=== PATIENT | male | born 1995 | race Caucasian/White ===

== ENCOUNTER 2016-08-12 12:29 | Inpatient (IN) | payer OTHER ==
[~2016-08-12] VITALS: Ht 170.2 cm; Wt 89.9 kg
[2016-08-12] MEDS ORDERED: ALBU17IN INH (12:52)
[2016-08-12 13:29] LABS: MEAN CORPUSCULAR HGB CONC 35.1 g/dl (32.0-36.5); RED CELL DISTRIBUTION WIDTH 12.3 % (11.5-14.5); WHITE BLOOD COUNT 11.3 K/mm3 (4.0-10.0)
[2016-08-12 14:01] LABS: METHADONE URINE NEGATIVE (NEGATIVE)
[2016-08-12 14:10] LABS: ALBUMIN 4.1 GM/DL (3.2-5.2); ALBUMIN/GLOBULIN RATIO 1.32 (1.00-1.93); ALKALINE PHOSPHATASE 109 U/L (45-117); ALT/SGPT 70 U/L (12-78); ANION GAP 8 MEQ/L (8-16); AST/SGOT 25 U/L (15-37); BILIRUBIN,DIRECT < 0.1 MG/DL (0.0-0.2); BILIRUBIN,TOTAL 0.3 MG/DL (0.2-1.0); BLOOD UREA NITROGEN 11 MG/DL (7-18); CARBON DIOXIDE LEVEL 24 MEQ/L (21-32); CHLORIDE LEVEL 108 MEQ/L (98-107); CREATININE FOR GFR 0.98 MG/DL (0.70-1.30); GLOMERULAR FILTRATION RATE > 60.0 (>60); GLUCOSE, FASTING 103 MG/DL (70-105); POTASSIUM SERUM 4.1 MEQ/L (3.5-5.1); SODIUM LEVEL 140 MEQ/L (136-145); TOTAL PROTEIN 7.2 GM/DL (6.4-8.2)
[2016-08-12] MEDS ORDERED: MOM 30ML SUSPENSION UDC PO PRN (20:15)
[2016-08-12] MEDS ORDERED: traZODone 50 MG TAB PO PRN (20:15)
[2016-08-12] MEDS ORDERED: MAALOX 30 ML SUSP *UDC PO PRN (20:15)
[2016-08-12] MEDS ORDERED: ACETAMINOPHEN TAB 650MG DOSE (2X325MG) PO PRN (20:15)
[2016-08-12] MEDS ORDERED: OLANZapine ORAL DISINTEGRATING TAB 5MG PO PRN (20:15)
[2016-08-12] MEDS: NICOTINE 21MG/24HR 1 EA TRANSDERMAL TD SCH (21:19)
[2016-08-13 06:57] VITALS: BP 131/76
[2016-08-13] MEDS: NICOTINE 21MG/24HR 1 EA TRANSDERMAL TD SCH (08:34)
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
[2016-08-13 12:00] VITALS: BP 129/74
[2016-08-13 18:00] VITALS: BP 126/72
[2016-08-13] MEDS: traZODone 100 MG TAB PO PRN ×2 (20:57→22:37)
[2016-08-13 20:59] VITALS: BP 136/67
[2016-08-13] MEDS: FOLIC ACID 1 MG TAB PO SCH (23:08)
[2016-08-13] MEDS: THIAMINE 100 MG TAB PO SCH (23:08)
[2016-08-14 06:43] VITALS: BP 119/56
--- NOTE | 2016-08-14 07:11 | HPE ---
DATE OF ADMISSION: 08/12/2016 HISTORY OF PRESENT ILLNESS: Please refer to psychiatric history and evaluation for further details on this admission. This examination and history is intended for medical issues, which may need treatment, followup or consultation on this 21-year-old male. PRIMARY CARE PROVIDER: Barry. ALLERGIES: No known drug allergies. 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 ETOH: Prior to being in the [employer] when he was homeless he drank up to one-half a gallon of liquor a day. He has decreased that amount but now states that recently, over the last three weeks he again has begun drinking and he is drinking up to one-half of gallon a liquor a day. Smoke: He dips a can and one-half at maximum every two days. Recreational drug use: None. PAST MEDICAL HISTORY: Asthma. PAST SURGICAL HISTORY: 1. Left knee anterior cruciate ligament (ACL) replacement. 2. Tonsillectomy. HOME MEDICATIONS: - albuterol HFA two puffs by mouth four times a day as needed shortness of breath or wheeze FAMILY HISTORY: Noncontributory. LABORATORY STUDIES: WBC 11.3, hemoglobin 15.7, hematocrit 44.7, platelets 319. Electrolytes were normal. BUN 11, creatinine 0.98, AST 25, ALT 70. REVIEW OF SYSTEMS: Ten systems review was done and was unremarkable other than history of asthma. He is uses albuterol as needed. OBJECTIVE: GENERAL: 21-year-old cooperative man in no acute distress. VITAL SIGNS: Height 67 inches, weight 88.3 kilograms, body maximum index (BMI) 30.5. Blood pressure 136/67, pulse 86, respirations 16. GENERAL: The patient is alert and oriented times three. HEENT: Pupils equal, round, reactive to light. Extraocular muscles intact. Cornea and sclerae clear. Conjunctiva is normal. No facial asymmetry. Pharynx, tongue and gum is pink and moist. Tongue is midline. NECK: Neck is supple without lymphadenopathy. No thyromegaly. No goiter. CHEST: Clear to auscultation without wheeze or retraction. HEART: Heart is regular. ABDOMEN: Benign. Bowel sounds positive. GENITOURINARY ()/Rectal: Not done. EXTREMITIES: Equal strength with full range of motion. No clubbing, cyanosis, and edema. Gait is steady. Peripheral pulses equal and palpable bilaterally. NEUROLOGIC: Cranial nerve II - XII grossly intact. SKIN: Warm and dry. IMPRESSION/PLAN: 1. Psychiatric plan per psychiatry. 2. Alcohol abuse. 3. Monitor for withdrawal. 4. History of asthma, clinically stable. 5. Will start patient on thiamine 100 by mouth daily, folate 1 mg by mouth daily, multivitamin 1 by mouth daily.
[2016-08-14 07:14] LABS: BASO % 0.3 % (0.0-1.0); EOS # 0.2 K/mm3 (0.0-0.50); EOS % 1.9 % (0.0-3.0); LARGE UNSTAINED CELL # 0.2 K/mm3 (0.0-0.4); LARGE UNSTAINED CELL % 1.9 % (0.0-4.0); LYMPH # 2.9 K/mm3 (1.5-6.5); LYMPH % 30.9 % (24.0-44.0); MEAN CORPUSCULAR HGB CONC 34.7 g/dl (32.0-36.5); MEAN CORPUSCULAR VOLUME 92.2 fl (80.0-96.0); MONO # 0.6 K/mm3 (0.0-0.8); NEUTROPHILS # 5.1 K/mm3 (1.8-7.7); NEUTROPHILS % 57.9 % (36.0-66.0); PLATELET COUNT, AUTOMATED 282 k/mm3 (150-450); RED CELL DISTRIBUTION WIDTH 12.5 % (11.5-14.5); WHITE BLOOD COUNT 8.8 K/mm3 (4.0-10.0)
[2016-08-14] MEDS: FOLIC ACID 1 MG TAB PO SCH (10:06)
[2016-08-14] MEDS: NICOTINE 21MG/24HR 1 EA TRANSDERMAL TD SCH (10:06)
[2016-08-14] MEDS: MULTIVITAMINS/MINERALS THERAP 1 TAB PO SCH (10:06)
[2016-08-14] MEDS: THIAMINE 100 MG TAB PO SCH (10:06)
--- NOTE | 2016-08-14 15:56 | IPNPDOC ---
[facility] Progress Note Progress Note DATE OF SERVICE: 08/14/16 HISTORY: Day 3 of admission. VITAL SIGNS: See below. NEW TEST RESULTS: na CURRENT MEDICATIONS: See below. MENTAL STATUS EXAMINATION: Patient is a 21-year old male, who is dressed in hospital garb, good eye contact , good hygiene. Speech: Is clear, fluent Language skills are good. Thought processes including: negative thinking, hopelessness Thought content: suicide plan remains in place as Plan A, Plan B is to complete service and upon discharge move to [place]. Abstract reasoning, and computation: fair, Description of associations: good. Description of abnormal or psychotic thoughts: Pt states he still intends to end his life after discharge. Denies aud or visual disturbance, Denies homicidal thoughts. States he will not do anything on the unit to harm himself or others. Judgment: fair Insight:fair Orientation: oriented in all spheres. Recent and remote memory: intact Attention span and concentration: good Fund of knowledge: full Mood:depressed. Affect: congruent DIAGNOSES: 1. Bipolar II disorder, current episode depressed, severe 2. alcohol abuse 3. nicotine dependence. ASSESSMENT:will add depakote to medication for impulse control, will increase abilify for mood regulation. Pt may have his leg brace for his left leg. MANAGEMENT PLAN: patient will need close surveillance after discharge as he is intent on suicide. TIME SPENT: 30 minutes. Vital Signs Vital Signs Date Time Temp Pulse Resp B/P (MAP) Pulse Ox O2 Delivery O2 Flow Rate FiO2 08/14/16 06:43 99.1 107 18 119/56 (77) 08/12/16 17:59 98 Room Air Laboratory Data 24H Labs Laboratory Tests 2 08/14/16 06:40: White Blood Count 8.8, Red Blood Count 4.47, Hemoglobin 14.3, Hematocrit 41.2L, Mean Corpuscular Volume 92.2, Mean Corpuscular Hemoglobin 32.0, Mean Corpuscular Hemoglobin Concent 34.7, Red Cell Distribution Width 12.5, Platelet Count 282, Neutrophils (%) (Auto) 57.9, Lymphocytes (%) (Auto) 30.9, Monocytes ( %) (Auto) 7.0H, Eosinophils (%) (Auto) 1.9, Basophils (%) (Auto) 0.3, Neutrophils # (Auto) 5.1, Lymphocytes # (Auto) 2.9, Monocytes # (Auto) 0.6, Eosinophils # (Auto) 0.2, Basophils # (Auto) 0.0, Large Unclassified Cells % 1.9 , Large Unclassified Cells # 0.2 CBC/BMP Laboratory Tests 08/14/16 06:40 Red Blood Count 4.47, Mean Corpuscular Volume 92.2, Mean Corpuscular Hemoglobin 32.0, Mean Corpuscular Hemoglobin Concent 34.7, Red Cell Distribution Width 12.5 , Neutrophils (%) (Auto) 57.9, Lymphocytes (%) (Auto) 30.9, Monocytes (%) (Auto ) 7.0 H, Eosinophils (%) (Auto) 1.9, Basophils (%) (Auto) 0.3, Neutrophils # ( Auto) 5.1, Lymphocytes # (Auto) 2.9, Monocytes # (Auto) 0.6, Eosinophils # (Auto ) 0.2, Basophils # (Auto) 0.0 Current Medications Current Medications Acetaminophen (Tylenol Tab) 650 mg Q6HP PRN PO HEADACHE or DISCOMFORT; Start at 20:15; Stop 09/11/16 at 20:14 Al Hydrox/Mg Hydrox/Simethicone (Mylanta) 30 ml Q4HP PRN PO HEARTBURN/ INDIGESTION; Start 08/12/16 at 20:15; Stop 09/11/16 at 20:14 Albuterol Sulfate (Proventil, Ventolin Hfa) 2 puff Q4HP PRN INH SHORTNESS OF BREATH; Start 08/12/16 at 21:30; Stop 09/11/16 at 21:29 Aripiprazole (AbiLIFY) 5 mg DAILY PO Last administered on 08/14/16 10:06; Start 08/13/16 at 09:00; Stop 09/12/16 at 08:59 Folic Acid (Folic Acid) 1 mg DAILY PO Last administered on 08/14/16 10:06; Start 08/13/16 at 09:00; Stop 09/12/16 at 08:59 Home Med (Med Rec Complete!) ASDIRECTED XX ; Start 08/12/16 at 15:00; Stop at 18:18; Status DC Magnesium Hydroxide (Milk Of Magnesia) 30 ml DAILYPRN PRN PO CONSTIPATION; Start 08/12/16 at 20:15; Stop 09/11/16 at 20:14 Multivitamins (Theragram-M) 1 tab DAILY PO Last administered on 08/14/16 10:06 ; Start 08/14/16 at 09:00; Stop 09/13/16 at 08:59 Nicotine (Nicoderm Cq 21mg) 1 patch DAILY TD Last administered on 08/14/16 10: 06; Start 08/12/16 at 09:00; Stop 09/11/16 at 08:59 Olanzapine (ZyPREXA ZYDIS) 5 mg Q4HP PRN PO ANXIETY/AGITATION; Start at 20:15; Stop 09/11/16 at 20:14; Status Cancel Thiamine HCl (Thiamine HCl) 100 mg DAILY PO Last administered on 08/14/16 10:06 ; Start 08/13/16 at 09:00; Stop 09/12/16 at 08:59 Trazodone HCl (Desyrel) 50 mg QHSP PRN PO INSOMNIA Last administered on 22:13; Start 08/12/16 at 20:15; Stop 08/13/16 at 10:40; Status DC Trazodone HCl (Desyrel) 100 mg QHSP PRN PO INSOMNIA Last administered on 22:37; Start 08/13/16 at 10:45; Stop 09/12/16 at 10:44 Allergies Coded Allergies: No Known Allergies (Unverified , 08/12/16) Angela Finnegan August 14, 2016 15:56
[2016-08-14 18:00] VITALS: BP 136/77
[2016-08-14] MEDS: traZODone 100 MG TAB PO PRN ×2 (21:01→22:43)
[2016-08-14] MEDS: DIVALPROEX 250 MG TAB PO SCH (21:01)
[2016-08-14] MEDS: ALBUTEROL 90 MCG/ACT 8GM HFA INHALER INH PRN (22:02)
[2016-08-15 06:31] VITALS: BP 108/54
[2016-08-15] MEDS: NICOTINE 21MG/24HR 1 EA TRANSDERMAL TD SCH (08:16)
[2016-08-15] MEDS: FOLIC ACID 1 MG TAB PO SCH (08:17)
[2016-08-15] MEDS: MULTIVITAMINS/MINERALS THERAP 1 TAB PO SCH (08:17)
[2016-08-15] MEDS: DIVALPROEX 250 MG TAB PO SCH ×2 (08:17→20:57)
[2016-08-15] MEDS: ARIPiprazole 10 MG TAB PO SCH (08:17)
[2016-08-15] MEDS: THIAMINE 100 MG TAB PO SCH (08:17)
[2016-08-15 12:00] VITALS: BP 136/84
[2016-08-15] MEDS: hydrOXYzine 50 MG TAB PO PRN ×2 (15:23→20:58)
--- NOTE | 2016-08-15 15:25 | MHIPNPDOC ---
[facility] Progress Note Progress Note DATE OF SERVICE: 08/15/16 HISTORY: Day 4 of admission VITAL SIGNS: See below. NEW TEST RESULTS: CURRENT MEDICATIONS: See below. MENTAL STATUS EXAMINATION: Patient is a 21-year old male, who is dressed in hospital attire, laying on bed , awake and alert, well oriented. Speech: Is spontaneous Language skills are good Thought processes including: goal directed Thought content: negative thoughts about himself and life. Abstract reasoning, and computation: good Description of associations: good Description of abnormal or psychotic thoughts: still considers suicide an option but less than before, no psychotic symptoms illicited. Judgment: poor Insight: fair Orientation: oriented to person, place, time and situation. Recent and remote memory: intact Attention span and concentration: good/variable Fund of knowledge: full Mood: depressed. Affect: broad range of affect DIAGNOSES: 1. Bipolar II disorder, current episode depressed, severe 2. alcohol abuse 3. nicotine dependence. ASSESSMENT:Pt took increased dose of Abilify for 1st time today. By the afternoon he is reporting racing thoughts. May or may not be related to Abilify , need to monitor this. pt got his leg brace. pt slept very well last night per his self-report. pt is not interested in contacting friends or family stating it will distract him from working on himself. Pt reports [employer] [facility] sending [facility] to [place] for treatment. He is willing to go for ongoing treatment and feels it is a good idea. MANAGEMENT PLAN: If pt continues to report racing thoughts will either lower Abilify on Thursday or change to a new agent entirely. In the meantime, Atarax 50 mg po is available prn q 4 h for anxiety. TIME SPENT: 15 minutes. Vital Signs Vital Signs Date Time Temp Pulse Resp B/P (MAP) Pulse Ox O2 Delivery O2 Flow Rate FiO2 08/15/16 12:00 98.3 90 16 136/84 (101) 08/12/16 17:59 98 Room Air Current Medications Current Medications Acetaminophen (Tylenol Tab) 650 mg Q6HP PRN PO HEADACHE or DISCOMFORT; Start at 20:15; Stop 09/11/16 at 20:14 Al Hydrox/Mg Hydrox/Simethicone (Mylanta) 30 ml Q4HP PRN PO HEARTBURN/ INDIGESTION; Start 08/12/16 at 20:15; Stop 09/11/16 at 20:14 Albuterol Sulfate (Proventil, Ventolin Hfa) 2 puff Q4HP PRN INH SHORTNESS OF BREATH Last administered on 08/14/16 22:02; Start 08/12/16 at 21:30; Stop at 21:29 Aripiprazole (AbiLIFY) 5 mg DAILY PO Last administered on 08/14/16 10:06; Start 08/13/16 at 09:00; Stop 08/14/16 at 15:59; Status DC Aripiprazole (AbiLIFY) 10 mg DAILY PO Last administered on 08/15/16 08:17; Start 08/15/16 at 09:00; Stop 09/14/16 at 08:59 Divalproex Sodium (Depakote) 250 mg BID PO Last administered on 08/15/16 08:17 ; Start 08/14/16 at 21:00; Stop 09/13/16 at 20:59 Folic Acid (Folic Acid) 1 mg DAILY PO Last administered on 08/15/16 08:17; Start 08/13/16 at 09:00; Stop 09/12/16 at 08:59 Home Med (Med Rec Complete!) ASDIRECTED XX ; Start 08/12/16 at 15:00; Stop at 18:18; Status DC Hydroxyzine HCl (Atarax) 50 mg Q4HP PRN PO ANXIETY; Start 08/15/16 at 15:15; Stop 09/14/16 at 15:14; Status UNV Magnesium Hydroxide (Milk Of Magnesia) 30 ml DAILYPRN PRN PO CONSTIPATION; Start 08/12/16 at 20:15; Stop 09/11/16 at 20:14 Multivitamins (Theragram-M) 1 tab DAILY PO Last administered on 08/15/16 08:17 ; Start 08/14/16 at 09:00; Stop 09/13/16 at 08:59 Nicotine (Nicoderm Cq 21mg) 1 patch DAILY TD Last administered on 08/15/16 08: 16; Start 08/12/16 at 09:00; Stop 09/11/16 at 08:59 Olanzapine (ZyPREXA ZYDIS) 5 mg Q4HP PRN PO ANXIETY/AGITATION; Start at 20:15; Stop 09/11/16 at 20:14; Status Cancel Thiamine HCl (Thiamine HCl) 100 mg DAILY PO Last administered on 08/15/16 08:17 ; Start 08/13/16 at 09:00; Stop 09/12/16 at 08:59 Trazodone HCl (Desyrel) 50 mg QHSP PRN PO INSOMNIA Last administered on 22:13; Start 08/12/16 at 20:15; Stop 08/13/16 at 10:40; Status DC Trazodone HCl (Desyrel) 100 mg QHSP PRN PO INSOMNIA Last administered on 22:43; Start 08/13/16 at 10:45; Stop 09/12/16 at 10:44 Allergies Coded Allergies: No Known Allergies (Unverified , 08/12/16) Angela Finnegan August 15, 2016 15:25
[2016-08-15 18:00] VITALS: BP 134/83
[2016-08-15] MEDS: traZODone 100 MG TAB PO PRN (20:57)
[2016-08-16 06:53] VITALS: BP 111/59
[2016-08-16] MEDS: THIAMINE 100 MG TAB PO SCH (08:31)
[2016-08-16] MEDS: ARIPiprazole 10 MG TAB PO SCH (08:31)
[2016-08-16] MEDS: DIVALPROEX 250 MG TAB PO SCH ×2 (08:31→20:24)
[2016-08-16] MEDS: NICOTINE 21MG/24HR 1 EA TRANSDERMAL TD SCH (08:31)
[2016-08-16] MEDS: FOLIC ACID 1 MG TAB PO SCH (08:31)
[2016-08-16] MEDS: MULTIVITAMINS/MINERALS THERAP 1 TAB PO SCH (08:31)
[2016-08-16 11:53] VITALS: BP 111/58
[2016-08-16 18:00] VITALS: BP 127/72
--- NOTE | 2016-08-16 19:18 | IPN ---
DATE: 08/16/2016 CHIEF COMPLAINT: Says feels a bit better. Seen for followup in the presence of staff. Says feels a bit better, in that he is less anxious. Says he feels suicidal but thinks less often of thoughts related to suicide, and attempts to differentiate the two. Denies any plans of harming himself at present. MENTAL STATUS EXAMINATION: Neat, cooperative. No agitation. No psychomotor retardation. Coherent. Affect is restricted but reactive. Has suicidal thoughts. No firm plans. No homicidal ideas or intents. No evidence of psychosis. Cognition grossly intact. Judgment and insight fair. ASSESSMENT: 1. Bipolar, type 2, disorder by history, current episode depressed. PLAN: 1. Continue current care, including the Abilify, Depakote, hydroxyzine. 2. Continue current observations. 3. Encourage participation in activities in the unit.
[2016-08-16] MEDS: hydrOXYzine 50 MG TAB PO PRN (20:24)
[2016-08-16] MEDS: traZODone 100 MG TAB PO PRN ×2 (20:24→23:09)
[2016-08-17 06:13] VITALS: BP 115/70
[2016-08-17] MEDS: NICOTINE 21MG/24HR 1 EA TRANSDERMAL TD SCH (08:23)
[2016-08-17] MEDS: THIAMINE 100 MG TAB PO SCH (08:23)
[2016-08-17] MEDS: FOLIC ACID 1 MG TAB PO SCH (08:23)
[2016-08-17] MEDS: DIVALPROEX 250 MG TAB PO SCH ×2 (08:23→22:45)
[2016-08-17] MEDS: ARIPiprazole 10 MG TAB PO SCH (08:23)
[2016-08-17] MEDS: MULTIVITAMINS/MINERALS THERAP 1 TAB PO SCH (08:23)
[2016-08-17 12:00] VITALS: BP 127/77
[2016-08-17] MEDS: hydrOXYzine 50 MG TAB PO PRN (16:04)
[2016-08-17 18:00] VITALS: BP 128/76
[2016-08-17 22:00] VITALS: BP 124/72
[2016-08-18 06:58] VITALS: BP 125/70
[2016-08-18] MEDS: MULTIVITAMINS/MINERALS THERAP 1 TAB PO SCH (08:33)
[2016-08-18] MEDS: FOLIC ACID 1 MG TAB PO SCH (08:33)
[2016-08-18] MEDS: THIAMINE 100 MG TAB PO SCH (08:33)
[2016-08-18] MEDS: NICOTINE 21MG/24HR 1 EA TRANSDERMAL TD SCH (08:33)
[2016-08-18] MEDS: ARIPiprazole 10 MG TAB PO SCH (08:34)
[2016-08-18] MEDS: DIVALPROEX 250 MG TAB PO SCH ×2 (08:34→21:12)
[2016-08-18] MEDS: hydrOXYzine 25 MG TAB PO PRN ×2 (12:58→21:12)
--- NOTE | 2016-08-18 15:39 | MHIPNPDOC ---
[facility] Progress Note Progress Note DATE OF SERVICE: 08/18/16 HISTORY: Day 7 of admission. Pt here for SI. VITAL SIGNS: See below. NEW TEST RESULTS: na CURRENT MEDICATIONS: See below. MENTAL STATUS EXAMINATION: Patient is a 21-year old male, who is dressed in hospital attire, good hygiene, good eye contact, pleasant and cooperative. Speech: Is spontaneous, clear Language skills are good Thought processes including: linear, goal directed Thought content: option of suicide is still a viable one for him, wants his best friend to visit him before he is transferred to halfway care. Abstract reasoning, and computation: fair. Description of associations: good. Description of abnormal or psychotic thoughts: pt states he is not thinking of suicide as often but the feeling that he would consider suicide an option for him remains real. No psychotic symptoms present Judgment: poor Insight: fair. Orientation: oriented in all spheres Recent and remote memory: intact Attention span and concentration: good Fund of knowledge: fair Mood: depressed. Affect: constricted and anxious. DIAGNOSES: 1. bipolar II, current episode depressed, severe. 2. nicotine dependence 3. alcohol abuse. ASSESSMENT:Pt continues to consider suicide but states his thoughts of suicide are less frequent. He does not offer a plan but feels that there are plenty of ways. He is very matter of fact when speaking of suicide and sees nothing unusual with being 21 and wanting to kill yourself. He had a very troublesome upbringing and has no contact with his family of origin. 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 He is of average to above average in intelligence. He is social with peers and gets along well with others. He has empathy for others. He denies any psychotic symptoms but does endorse symptoms of tomy mostly with decreased need for sleep , not feeling tired when he sleeps very little, increased energy, mood swings, racing thoughts, distracted by thoughts, some impulsive behavior by history. Pt has engaged in self-mutilation by cutting in the past. MANAGEMENT PLAN: Pt was stated on Abilify 5 mg then increased to 10 mg. He reported racing thoughts on Thursday but today he states he does not think his thoughts are racing due to the abilify. He feels that he is anxious about the [employer] decision to send him to [place] for long-term inpatient treatment. This is a good decision on their part and pt is willing to participate. His only request is for his friend from [place] to visit him before he leaves. He was provided with a list of the items that he needs to pack. We discussed adding Wellbutrin to his medication regime to help with depression. May also help his reliance on snuff. He chews a can and a-half every 2 days. He states he is diligent with his oral hygiene. Daquan reports adequate sleep on the unit. He is tolerating meals. Denies constipation. TIME SPENT: 30 minutes. Vital Signs Vital Signs Date Time Temp Pulse Resp B/P (MAP) Pulse Ox O2 Delivery O2 Flow Rate FiO2 08/18/16 06:58 97.1 91 18 125/70 (88) 08/12/16 17:59 98 Room Air Current Medications Current Medications Acetaminophen (Tylenol Tab) 650 mg Q6HP PRN PO HEADACHE or DISCOMFORT; Start at 20:15; Stop 09/11/16 at 20:14 Al Hydrox/Mg Hydrox/Simethicone (Mylanta) 30 ml Q4HP PRN PO HEARTBURN/ INDIGESTION; Start 08/12/16 at 20:15; Stop 09/11/16 at 20:14 Albuterol Sulfate (Proventil, Ventolin Hfa) 2 puff Q4HP PRN INH SHORTNESS OF BREATH Last administered on 08/14/16 22:02; Start 08/12/16 at 21:30; Stop at 21:29 Aripiprazole (AbiLIFY) 5 mg DAILY PO Last administered on 08/14/16 10:06; Start 08/13/16 at 09:00; Stop 08/14/16 at 15:59; Status DC Aripiprazole (AbiLIFY) 10 mg DAILY PO Last administered on 08/18/16 08:34; Start 08/15/16 at 09:00; Stop 09/14/16 at 08:59 Divalproex Sodium (Depakote) 250 mg BID PO Last administered on 08/18/16 08:34 ; Start 08/14/16 at 21:00; Stop 09/13/16 at 20:59 Folic Acid (Folic Acid) 1 mg DAILY PO Last administered on 08/18/16 08:33; Start 08/13/16 at 09:00; Stop 09/12/16 at 08:59 Home Med (Med Rec Complete!) ASDIRECTED XX ; Start 08/12/16 at 15:00; Stop at 18:18; Status DC Hydroxyzine HCl (Atarax) 25 mg Q4HP PRN PO ANXIETY/AGITATION Last administered on 08/18/16 12:58; Start 08/18/16 at 12:15; Stop 09/17/16 at 12:14 Hydroxyzine HCl (Atarax) 50 mg Q4HP PRN PO ANXIETY Last administered on 16:04; Start 08/15/16 at 15:15; Stop 08/18/16 at 12:11; Status DC Magnesium Hydroxide (Milk Of Magnesia) 30 ml DAILYPRN PRN PO CONSTIPATION; Start 08/12/16 at 20:15; Stop 09/11/16 at 20:14 Multivitamins (Theragram-M) 1 tab DAILY PO Last administered on 08/18/16 08:33 ; Start 08/14/16 at 09:00; Stop 09/13/16 at 08:59 Nicotine (Nicoderm Cq 21mg) 1 patch DAILY TD Last administered on 08/18/16 08: 33; Start 08/12/16 at 09:00; Stop 09/11/16 at 08:59 Olanzapine (ZyPREXA ZYDIS) 5 mg Q4HP PRN PO ANXIETY/AGITATION; Start at 20:15; Stop 09/11/16 at 20:14; Status Cancel Thiamine HCl (Thiamine HCl) 100 mg DAILY PO Last administered on 08/18/16 08:33 ; Start 08/13/16 at 09:00; Stop 09/12/16 at 08:59 Trazodone HCl (Desyrel) 50 mg QHSP PRN PO INSOMNIA Last administered on 22:13; Start 08/12/16 at 20:15; Stop 08/13/16 at 10:40; Status DC Trazodone HCl (Desyrel) 100 mg QHSP PRN PO INSOMNIA Last administered on 23:09; Start 08/13/16 at 10:45; Stop 09/12/16 at 10:44 Allergies Coded Allergies: No Known Allergies (Unverified , 08/12/16) Angela Finnegan August 18, 2016 15:39
[2016-08-18] MEDS: buPROPion 75 MG TAB PO SCH (15:55)
[2016-08-18 18:00] VITALS: BP 136/77
[2016-08-18] MEDS: traZODone 100 MG TAB PO PRN (21:11)
[2016-08-18 21:55] VITALS: BP 124/66
[2016-08-19 06:22] VITALS: BP 112/61
[2016-08-19] MEDS: FOLIC ACID 1 MG TAB PO SCH (08:53)
[2016-08-19] MEDS: ARIPiprazole 10 MG TAB PO SCH (08:53)
[2016-08-19] MEDS: buPROPion 75 MG TAB PO SCH (08:53)
[2016-08-19] MEDS: MULTIVITAMINS/MINERALS THERAP 1 TAB PO SCH (08:53)
[2016-08-19] MEDS: DIVALPROEX 250 MG TAB PO SCH ×2 (08:53→20:57)
[2016-08-19] MEDS: NICOTINE 21MG/24HR 1 EA TRANSDERMAL TD SCH (08:53)
[2016-08-19] MEDS: THIAMINE 100 MG TAB PO SCH (08:53)
[2016-08-19 12:05] VITALS: BP 164/71
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
[2016-08-19 18:34] VITALS: BP 142/70
[2016-08-19] MEDS: ALBUTEROL 90 MCG/ACT 8GM HFA INHALER INH PRN (20:57)
[2016-08-19] MEDS: traZODone 100 MG TAB PO PRN (20:57)
[2016-08-19] MEDS: hydrOXYzine 25 MG TAB PO PRN (21:12)
[2016-08-20 06:53] VITALS: BP 110/56
[2016-08-20] MEDS: ARIPiprazole 10 MG TAB PO SCH (09:05)
[2016-08-20] MEDS: MULTIVITAMINS/MINERALS THERAP 1 TAB PO SCH (09:05)
[2016-08-20] MEDS: DIVALPROEX 250 MG TAB PO SCH (09:05)
[2016-08-20] MEDS: NICOTINE 21MG/24HR 1 EA TRANSDERMAL TD SCH (09:05)
[2016-08-20] MEDS: THIAMINE 100 MG TAB PO SCH (09:05)
[2016-08-20] MEDS: buPROPion 75 MG TAB PO SCH (09:05)
[2016-08-20] MEDS: FOLIC ACID 1 MG TAB PO SCH (09:05)
[2016-08-20 12:00] VITALS: BP 134/64
[2016-08-20] MEDS: hydrOXYzine 25 MG TAB PO PRN ×2 (12:04→16:15)
--- NOTE | 2016-08-20 14:53 | MHIPNPDOC ---
[facility] Progress Note Progress Note DATE OF SERVICE: 08/20/16 HISTORY: day 9 of admission VITAL SIGNS: See below. NEW TEST RESULTS: NA CURRENT MEDICATIONS: See below. MENTAL STATUS EXAMINATION: Patient is a 21-year old male, who is dressed in hospital garb, hygiene is good , good eye contact. Speech: Is spontaneous Language skills are grossly intact Thought processes including: linear, patient sees everything in black or white. He cannot perceive the in-between Thought content: thinking about his treatment planned to start tomorrow in [place]. Abstract reasoning, and computation: good. Description of associations: good. Description of abnormal or psychotic thoughts: pt reports fewer thoughts of committing suicide however he thinks he is capable of it and would do it if things don't go as he would like them to about anything in his life. Judgment: fair Insight: fair. Orientation: well oriented in all spheres Recent and remote memory: intact Attention span and concentration: good Fund of knowledge: full Mood: "anxious". Affect: congruent. DIAGNOSES: 1. bipolar II, current episode depressed, severe. 2. nicotine dependence 3. alcohol abuse. ASSESSMENT:Pt has been increasingly anxious since learning he was going to receive care home treatment for bipolar disorder. he has reported racing thoughts and used ??? to help him calm himself. He continues to participate in groups and games and interacts well with peers. MANAGEMENT PLAN: Mr. Sanchez leaves at 5:30 a.m. for [place] tomorrow. His discharge orders are in place. He will leave with out any medication orders per the request of his receiving agency. He will be escorted from the unit to the airport by his command staff. Pt should be continued on his a.m. meds of Abilify and Wellbutrin. His meds may be contributing to anxiety but he is not able to determine if that is the case and believes it is mostly his situational worry. Cordwainer is suspicious that raising abilify to 10 mg may be contributing to racing thoughts. TIME SPENT: 30 minutes. Vital Signs Vital Signs Date Time Temp Pulse Resp B/P (MAP) Pulse Ox O2 Delivery O2 Flow Rate FiO2 08/20/16 12:00 99.2 78 16 134/64 (87) Current Medications Current Medications Acetaminophen (Tylenol Tab) 650 mg Q6HP PRN PO HEADACHE or DISCOMFORT; Start at 20:15; Stop 09/11/16 at 20:14 Al Hydrox/Mg Hydrox/Simethicone (Mylanta) 30 ml Q4HP PRN PO HEARTBURN/ INDIGESTION; Start 08/12/16 at 20:15; Stop 09/11/16 at 20:14 Albuterol Sulfate (Proventil, Ventolin Hfa) 2 puff Q4HP PRN INH SHORTNESS OF BREATH Last administered on 08/19/16 20:57; Start 08/12/16 at 21:30; Stop at 21:29 Aripiprazole (AbiLIFY) 5 mg DAILY PO Last administered on 08/14/16 10:06; Start 08/13/16 at 09:00; Stop 08/14/16 at 15:59; Status DC Aripiprazole (AbiLIFY) 10 mg DAILY PO Last administered on 08/20/16 09:05; Start 08/15/16 at 09:00; Stop 09/14/16 at 08:59 Bupropion HCl (Wellbutrin) 75 mg QAM PO Last administered on 08/20/16 09:05; Start 08/18/16 at 09:00; Stop 09/17/16 at 08:59 Divalproex Sodium (Depakote) 250 mg BID PO Last administered on 08/20/16 09:05 ; Start 08/14/16 at 21:00; Stop 09/13/16 at 20:59 Folic Acid (Folic Acid) 1 mg DAILY PO Last administered on 08/20/16 09:05; Start 08/13/16 at 09:00; Stop 09/12/16 at 08:59 Home Med (Med Rec Complete!) ASDIRECTED XX ; Start 08/12/16 at 15:00; Stop at 18:18; Status DC Hydroxyzine HCl (Atarax) 25 mg Q4HP PRN PO ANXIETY/AGITATION Last administered on 08/20/16 12:04; Start 08/18/16 at 12:15; Stop 09/17/16 at 12:14 Hydroxyzine HCl (Atarax) 50 mg Q4HP PRN PO ANXIETY Last administered on 16:04; Start 08/15/16 at 15:15; Stop 08/18/16 at 12:11; Status DC Magnesium Hydroxide (Milk Of Magnesia) 30 ml DAILYPRN PRN PO CONSTIPATION; Start 08/12/16 at 20:15; Stop 09/11/16 at 20:14 Multivitamins (Theragram-M) 1 tab DAILY PO Last administered on 08/20/16 09:05 ; Start 08/14/16 at 09:00; Stop 09/13/16 at 08:59 Nicotine (Nicoderm Cq 21mg) 1 patch DAILY TD Last administered on 08/20/16 09: 05; Start 08/12/16 at 09:00; Stop 09/11/16 at 08:59 Olanzapine (ZyPREXA ZYDIS) 5 mg Q4HP PRN PO ANXIETY/AGITATION; Start at 20:15; Stop 09/11/16 at 20:14; Status Cancel Thiamine HCl (Thiamine HCl) 100 mg DAILY PO Last administered on 08/20/16 09: 05; Start 08/13/16 at 09:00; Stop 09/12/16 at 08:59 Trazodone HCl (Desyrel) 50 mg QHSP PRN PO INSOMNIA Last administered on 22:13; Start 08/12/16 at 20:15; Stop 08/13/16 at 10:40; Status DC Trazodone HCl (Desyrel) 100 mg QHSP PRN PO INSOMNIA Last administered on 20:57; Start 08/13/16 at 10:45; Stop 09/12/16 at 10:44 Allergies Coded Allergies: No Known Allergies (Unverified , 08/12/16) Angela Finnegan August 20, 2016 14:53
[2016-08-20] MEDS ORDERED: buPROPion 100 MG TAB PO ONE (16:15)
[2016-08-20] MEDS ORDERED: ARIPiprazole 10 MG TAB PO ONE (16:15)
[2016-08-20 18:00] VITALS: BP 143/76
[2016-08-20] MEDS: traZODone 100 MG TAB PO PRN (20:45)
[2016-08-21] MEDS ORDERED: ARIPiprazole 10 MG TAB PO ONE (05:00)
[2016-08-21] MEDS ORDERED: DIVALPROEX 250 MG TAB PO ONE (05:00)
[2016-08-21] MEDS ORDERED: buPROPion 100 MG TAB PO ONE (05:00)
== END 2016-08-21 05:30 | DRG 885 ==
LOC: M ED 14:55 → M ED INP 15:35 → M PSY 18:12
PROVIDERS: ADMIT Psychiatry & Neurology Psychiatry; ATTEND Psychiatry & Neurology Child & Adolescent Psychiatry
DX: F31.4 Bipolar disorder, current episode depressed, severe, without psychotic features (principal); F10.20 Alcohol dependence, uncomplicated; F17.220 Nicotine dependence, chewing tobacco, uncomplicated; H91.92 Unspecified hearing loss, left ear; G47.00 Insomnia, unspecified; Z79.899 Other long term (current) drug therapy; Z91.5 Personal history of self-harm; Z81.8 Family history of other mental and behavioral disorders; Z62.810 Personal history of physical and sexual abuse in childhood; Z62.811 Personal history of psychological abuse in childhood

== ENCOUNTER → 2017-01-06 | Outpatient (CLI) | payer OTHER ==
[~2017-01-06] MED LIST: ALBU17IN INH; METHACHOLINE KIT (J7674) INH ONE
--- NOTE | 2017-01-06 09:02 | PFTRPT ---
Tech: Olena RODRIGES RRT Age: 21 Sex: Male Race: Height: 66.00 Inches Weight: 210.00 Lbs BSA: 2.04 Diagnosis: R05 METHACHOLINE CHALLENGE REPORT: ORDERING PROVIDER: ARIN Franklin DATE OF SERVICE: 01/06/17 INTERPRETATION: The study was of excellent technical quality. Under protocol, methacholine was administered. At a dose of 25 mg (188.875 CDUs), a 43% decline in the FEV1 was noted. The PC20 of 10.85 does not meet diagnostic criteria for a positive test. Flow rates did return to baseline post bronchodilator administration. IMPRESSION: Borderline methacholine challenge study in view of the above. Please correlate clinically. MTDD
== END ==
LOC: M CARPUL 08:02
PROVIDERS: ATTEND Nurse Practitioner Adult Health
DX: R05 Cough (principal)
CPT/HCPCS: 94070; J7674